=== PATIENT | male | born 1990 | race Two or more races ===

== ENCOUNTER 2017-03-02 14:17 | Emergency (ER) | payer SELFPAY | END 2017-03-02 15:46 | disposition home or self-care (01) | LOC: FTE 14:17 | DX: R11.2 Nausea with vomiting, unspecified (principal); Z87.891 Personal history of nicotine dependence | CPT/HCPCS: 99283 ==

== ENCOUNTER 2018-10-20 16:10 | Emergency (ER) | payer MEDICAID ==
[2018-10-20] MEDS: FAMOTIDINE 20 MG TAB PO (17:00)
[2018-10-20] MEDS: LIDOCAINE/MYLANTA 40 ML BTL PO (17:00)
== END 2018-10-20 18:15 | disposition home or self-care (01) ==
LOC: FTE 16:10
DX: J20.9 Acute bronchitis, unspecified (principal); K21.9 Gastro-esophageal reflux disease without esophagitis; M94.0 Chondrocostal junction syndrome [Tietze]; F17.210 Nicotine dependence, cigarettes, uncomplicated
CPT/HCPCS: 71045; 99283-25